=== PATIENT | male | born 1945 | race Caucasian/White ===

== ENCOUNTER 2017-03-11 05:57 | Day surgery (SDC) | payer MEDICARE ==
[2017-03-08 08:33] VITALS: BP 103/57
[2017-03-08 08:42] LABS: APPEARANCE,URINE Clear (CLEAR); BILIRUBIN,URINE Negative (NEGATIVE); COLOR,URINE Yellow (YELLOW); GLUCOSE, URINE (UA) Negative (NEGATIVE); KETONES,URINE Negative (NEGATIVE); LEUKOCYTE ESTERASE ,URINE Negative (NEGATIVE); NITRATE,URINE Negative (NEGATIVE); OCCULT BLOOD,URINE Negative (NEGATIVE); PROTEIN,URINE Negative (NEGATIVE); UROBILINOGEN,URINE 0.2 mg/dL (0.2-1.0)
[2017-03-08 08:43] LABS: BASOPHILS % (AUTO) 0.9 % (0.0-5.0); EOSINOPHILS % (AUTO) 4.3 % (0.0-8.0); HEMATOCRIT 40.1 % (42-54); LYMPHOCYTES % (AUTO) 24.1 % (21.0-51.0); MEAN CORPUSCULAR HGB CONC 33.9 g/dL (32.0-36.0); MEAN CORPUSCULAR VOLUME 94.5 fL (79-99); MONOCYTES % (AUTO) 12.3 % (3.0-13.0); NEUTROPHILS % (AUTO) 58.4 % (40.0-77.0); PLATELET COUNT (AUTO) 126 K/uL (130-400); RED BLOOD CELL COUNT(AUTO) 4.25 MIL/uL (4.50-6.20); RED CELL DISTRIBUTION WIDTH 13.6 % (11.0-15.5)
[2017-03-08 08:55] LABS: CREATININE 0.9 mg/dL (0.5-1.5); POTASSIUM 4.3 mmol/L (3.5-5.1)
[2017-03-08 09:02] LABS: INR 0.95 (0.85-1.15); PARTIAL THROMBOPLASTIN TIME 25.4 SEC (26.3-35.5)
[~2017-03-11] VITALS: Ht 182.9 cm; Wt 71.8 kg
[2017-03-11] VITALS (8 sets, daily range): BP systolic 101–128; BP diastolic 51–71
[~2017-03-11 05:57] MED LIST: ACETAMINOPHEN 325 MG TAB PO PRN; ASPI-1181 PO; ATOR20TA PO; DEXA0.5S2 PO; LORA1TAB3 PO; MELA3TAB PO; METO-408 PO; RANI300T4 PO; RANO500T2 PO; SILO8CAP PO; SODIUM CHLORIDE 0.9% 500ML 500 ML IV SCH; [UNRECOGNIZED DRUG - CODE] PO
[2017-03-11] MEDS ORDERED: IOPAMIDOL-370 75 ML VIAL IV ONE (07:09)
[2017-03-11] MEDS ORDERED: IOPAMIDOL-370 100 ML VIAL IV ONE (07:09)
[2017-03-11] MEDS ORDERED: NITROGLYCERIN 5 MG/ML 10 ML VIAL IV ONE (07:09)
[2017-03-11] MEDS ORDERED: HEPARIN SODIUM 1000UNIT/ML 10ML VIAL ONE (07:09)
[2017-03-11] MEDS ORDERED: LIDOCAINE HCL 2% 20ML ONE (07:10)
[2017-03-11] MEDS ORDERED: MIDAZOLAM HCL 1 MG/ML 2ML VIAL ONE (07:10)
[2017-03-11] MEDS ORDERED: FENTANYL CITRATE PF 50 MCG/1 ML 2ML VIAL ONE (07:10)
[2017-03-11] MEDS ORDERED: SODIUM CHLORIDE 0.9% 1000ML 1,000 ML IV ONE (07:41)
[2017-03-11] MEDS ORDERED: SODIUM CHLORIDE 0.9% 1000ML 1,000 ML IV SCH (08:18)
[2017-03-11] MEDS ORDERED: METOPROLOL TARTRATE 1 MG/ML 5ML VIAL IV PRN (08:30)
[2017-03-11] MEDS ORDERED: GLUCAGON 1MG KIT 1 MG ML IM PRN (08:30)
[2017-03-11] MEDS ORDERED: DEXTROSE 50%-WATER 50 ML DISP.SYRIN IV PRN (08:30)
[2017-03-11] MEDS ORDERED: NITROGLYCERIN 0.4 MG SL TAB SL PRN (08:30)
== END 2017-03-11 13:00 | disposition home or self-care (01) ==
LOC: DAH 05:57
PROVIDERS: ATTEND Internal Medicine Cardiovascular Disease
DX: I25.10 Atherosclerotic heart disease of native coronary artery without angina pectoris (principal); I10 Essential (primary) hypertension; I48.0 Paroxysmal atrial fibrillation; E78.5 Hyperlipidemia, unspecified; Z79.82 Long term (current) use of aspirin; Z79.01 Long term (current) use of anticoagulants
CPT/HCPCS: 36415; 71045; 80048; 81003; 85025; 85610; 85730; 93005; 93458; 99156; 99157; A4606; C1760; C1894 ×2; J1644; J2250; J3010; J3490 ×2; J7030; Q9967 ×2; 99152; 99153

== ENCOUNTER → 2024-02-18 | Outpatient (CLI) | payer MEDICARE ==
[~2024-02-18] MED LIST changes: -ACETAMINOPHEN 325 MG TAB PO PRN; -ASPI-1181 PO; +ASPI-1443 PO; +IOHEXOL 350 MG/ML 100ML INFUS..BTL IV ONE; -MELA3TAB PO; +MELA3TAB41 PO; -SILO8CAP PO; +SILO8CAP2 PO; -SODIUM CHLORIDE 0.9% 500ML 500 ML IV SCH
--- NOTE | 2024-02-18 11:22 | HMCIMG ---
CT CARDIAC ANGIO W/CONT. CCTA HISTORY: Atherosclerotic heart disease COMPARISON: None TECHNIQUE: Multiple sequential axial images of the chest were obtained along with the CT angiogram of the chest study. Patient was given 100 cc of Omnipaque through intravenous route. FINDINGS: There is no evidence of pulmonary nodule or parenchymal disease. No pleural effusion or pericardial effusion is seen. There is no evidence of pneumothorax. There are normal size mediastinal and hilar lymph nodes. The heart is borderline enlarged. Coronary arterial calcifications are seen. Degenerative changes of the thoracolumbar spine are present. IMPRESSION: 1. No evidence of pulmonary nodule or effusion is seen. Please see CT angiogram report of coronary arteries.
--- NOTE | 2024-02-19 11:06 | CARDIOLOGY ---
RAD REPORT: [facility] CT ANGIO RADIOLOGY REPORT: CORONARY CT ANGIOGRAPHY DATE: Feb 19, 2024 QUALITY: Excellent CLINICAL HISTORY AND INDICATION: [ CAD] TECHNIQUE: After obtaining a preliminary energy derivatives trader image, contrast imaging performed on an [employer]illon [id number] scanner. A dedicated, limited window, coronary imaging protocol was used, with single breath-hold, retrospective ECG gating, and automated arrhythmia rejection. 100 cc of low osmolar contrast agent: Omnipaque 350 was delivered via a 18-gauge IV catheter in the right antecubital fossa, using a power injector and followed by 60 cc of normal saline bolus as a chaser. Collimated images were reformatted at 0.5 mm intervals, and sent to an offline independent workstation for interpretation, using 3D anatomic reconstructions: Curved multiplanar reconstructions, maximum intensity projections, and multiplanar imaging. No metoprolol was administered prior to scanning due to low baseline heart rate. No SL nitroglycerin was given. CORONARY ARTERY DESCRIPTIONS: The coronary arteries arise in normal position. Left main coronary artery: Normal caliber vessel that bifurcates into the LAD and LCx. There is distal left main heavy calcium burden with 50% stenosis. Left anterior descending coronary artery: Normal caliber vessel and gives rise to diagonal and septal branches. Heavily calcified. There is mixed calcified and noncalcified plaque in the ostial/proximal to mid LAD with 80% stenosis. Left circumflex coronary artery: Normal caliber, nondominant and gives rise to a large OM branch. Heavily calcified. There is mixed calcified and noncalcified plaque in the ostial LCx with 50% stenosis. There is mixed calcified and noncalcified plaque in the mid LCx with 70-80% stenosis. Right coronary artery: Large, dominant vessel giving rise to the PL and PDA branches. Heavily calcified and diffusely diseased. Not able to provide luminal stenosis quantification due to motion artifact in the mid to distal segments. There is 30% stenosis diffusely in the proximal RCA. CAD-RADs: 4B, multivessel obstructive CAD. Thoracic Aorta: Normal diameter. Deborah Marie MD Cardiovascular Disease [facility] DEBORAH MARIE MD Feb 19, 2024 11:06
== END | disposition home or self-care (01) ==
LOC: RAH 09:07
PROVIDERS: ATTEND Internal Medicine Cardiovascular Disease
DX: I25.10 Atherosclerotic heart disease of native coronary artery without angina pectoris (principal); I25.5 Ischemic cardiomyopathy; M47.815 Spondylosis without myelopathy or radiculopathy, thoracolumbar region
CPT/HCPCS: 75574; Q9967

== ENCOUNTER 2024-04-06 07:41 | Day surgery (SDC) | payer MEDICARE ==
[2024-04-03 11:14] VITALS: BP 110/54; PULSE 61; RESP 18; TEMP 97.5
[2024-04-03 11:42] LABS: INR 0.98 (0.85-1.15)
[2024-04-03 11:44] LABS: PARTIAL THROMBOPLASTIN TIME 30.5 SEC (26.3-35.5)
[2024-04-03 11:47] LABS: BASOPHILS # (AUTO) 0.02 K/uL (0.00-0.20); BASOPHILS % (AUTO) 0.4 % (0.0-5.0); EOSINOPHILS # (AUTO) 0.19 K/uL (0.00-0.70); EOSINOPHILS % (AUTO) 3.9 % (0.0-8.0); HEMATOCRIT 38.5 % (42-54); IMMATURE GRANULOCYTE ABSOLUTE 0.03 K/uL (0-1); LYMPHOCYTES # (AUTO) 1.3 K/uL (1.0-4.8); LYMPHOCYTES % (AUTO) 27.5 % (21.0-51.0); MEAN CORPUSCULAR HEMOGLOBIN 32.1 pg (27.0-33.0); MEAN CORPUSCULAR VOLUME 97.2 fL (79-99); MONOCYTES # (AUTO) 0.7 K/uL (0.1-1.0); MONOCYTES % (AUTO) 15.2 % (3.0-13.0); NEUTROPHILS # (AUTO) 2.6 K/uL (1.8-7.7); NEUTROPHILS % (AUTO) 52.4 % (40.0-77.0); PLATELET COUNT (AUTO) 89 K/uL (130-400); RED BLOOD CELL COUNT(AUTO) 3.96 MIL/uL (4.50-6.20); RED CELL DISTRIBUTION WIDTH 12.8 % (11.0-15.5); WHITE BLOOD COUNT (AUTO) 4.9 K/uL (4.8-10.8)
[2024-04-03 11:52] LABS: POTASSIUM 4.3 mmol/L (3.5-5.1)
--- NOTE | 2024-04-03 12:19 | EKG ---
[facility] Test Date: 2024-04-03 Test Time: 11:55:49 Pat Name: ISELA ALVA Department: [facility] Room: Gender: M Combine Inspector: [id number] : 1945 Requested By: GRISEL DE PAZ Order Number: [id number] Reading MD: Hiro Marie Measurements Intervals [place] Rate: 44 P: 22 WV: 167 QRS: -6 QRSD: 152 T: 12 QT: 489 QTc: 478 Interpretive Statements Sinus rhythm Ventricular trigeminy Left bundle branch block Compared to ECG 03/08/2017 08:26:59 Ventricular premature complex(es) now present Sinus bradycardia no longer present Electronically Signed On 04-04-2024 17:14:58 MACHINE [employer]OP [employer]ER by Hiro Marie Please click the below link to view image of tracing.
--- NOTE | 2024-04-03 12:20 | HMCIMG ---
CHEST 1VW REASON: PREOP COMPARISON: 03/08/2017 FINDINGS: Single view of the chest was obtained. Lungs are clear. Heart size is normal. There is no pulmonary vascular congestion. Mediastinum and bony thorax appear unremarkable. IMPRESSION: 1. Normal single view chest x-ray.
--- NOTE | 2024-04-03 15:41 | NUR ---
RE: LABS REPORTED CBC RESULTS TO [facility]IR[facility] WADSWORTH (PATIENT WITH HX OF LOW PLATELETS AND SEEING RETORT FEEDER GROUND BONE). NO NEW ORDERS RECEIVED.
[2024-04-06] VITALS (12 sets, daily range): BP systolic 119–156; BP diastolic 59–89; PULSE 54–63; RESP 12–18; TEMP 97.3–97.7
[~2024-04-06] VITALS: Ht 182.9 cm; Wt 71.7 kg
[~2024-04-06 07:41] MED LIST changes: +APIX5TAB PO; -ASPI-1443 PO; -ATOR20TA PO; -DEXA0.5S2 PO; +FAMO40TA7 PO; -IOHEXOL 350 MG/ML 100ML INFUS..BTL IV ONE; -MELA3TAB41 PO; +MELA5CAP PO; +PREG75 PO; -RANI300T4 PO; +ROSU10TA72 PO; +TRAM50TA4 PO; -[UNRECOGNIZED DRUG - CODE] PO
[2024-04-06] MEDS: 0.9%NACL 1000ML 1,000 ML IV SCH (08:46)
[2024-04-06] MEDS ORDERED: IOHEXOL 350 MG/ML 100ML INFUS..BTL IV ONE (10:08)
[2024-04-06] MEDS ORDERED: LIDOCAINE HCL 400MG/20ML VIAL ONE (10:08)
[2024-04-06] MEDS ORDERED: HEParin-NS 1,000 UNIT/500 ML 1,000 ML IV ONE (10:09)
[2024-04-06] MEDS ORDERED: HEParin 10,000 UNIT/10ML (1,000 UNIT/ML) VIAL ONE (10:09)
[2024-04-06] MEDS ORDERED: NITROGLYCERIN 50MG VIAL ONE (10:10)
[2024-04-06] MEDS ORDERED: MIDAZOLAM HCL 1 MG/ML 2ML VIAL ONE (10:34)
[2024-04-06] MEDS ORDERED: FENTanyl CITRate PF 50 MCG/1 ML 2ML VIAL ONE (10:34)
[2024-04-06] MEDS ORDERED: NITROGLYCERIN 0.4 MG SL TAB SL PRN (11:30)
[2024-04-06] MEDS ORDERED: 0.9%NACL 1000ML 1,000 ML IV SCH (11:30)
--- NOTE | 2024-04-06 11:38 | PRN ---
Left Heart Cath-[place] PROCEDURE: 1. Right common femoral arterial sheath placement. 2. Selective coronary angiogram. 3. Left heart catheterization. 4. Left ventriculogram. 5. Left Subclavian arteriogram INDICATIONS: Chest pain Abnormal stress test and coronary CT angiogram Known coronary artery disease DESCRIPTION OF PROCEDURE: The patient was brought to the catheterization suite and prepped and draped in sterile fashion. An IV was started, if not already in place and both groins were exposed for arterial access. 1% lidocaine was used for local anesthesia and then a micropuncture kit was used to gain access and once free-flowing blood was seen, modified Seldinger technique was utilized to place a 6 [place] sheath into the right common femoral artery. Next, preformed JL4 and JR4 Catheters were then used to selectively engage the [place] coronary vessels and multiple hand contrast injections were performed in different views to define the coronary anatomy. The JR4 catheter was also used to selectively engage the left subclavian artery pressure measurements were obtained and then a subclavian arteriogram was performed to assess patency of left internal mammary artery. Next, a six [place] angled pigtail catheter was used to cross the aortic valve. Pressure measurements were obtained in the left ventriculogram was in the 30 CANELA position. Next, pullback method was performed. At the end of the case, sheath was pulled with the use of a closure device for closure of arteriotomy site.. No complications occurred. FINDINGS: The left main artery is calcified throughout its course with a distal stenosis of 50%. It bifurcates into the LAD and left circumflex vessel. The left anterior descending artery is calcified throughout its proximal and mid segments of the vessel with an ostial stenosis of 70% proximal stenosis of 75% and a distal LAD stenosis of 75%. The left circumflex artery is a codominant system giving rise to the left posterolateral branch. It is calcified in its proximal and mid segments with the mid left circumflex having a 70% stenosis present. The right coronary artery is calcified throughout its proximal mid and distal course with some aneurysmal changes noted followed by a mid distal stenosis of 75% followed by another distal stenosis of proximally 60-70%. The right coronary artery is a codominant system giving rise to the PDA which is patent. LVEDP is 17 mmHg There was no evidence of aortic stenosis or mitral regurgitation Ejection fraction was estimated at 65% Wall motion is normal in one should be noted that patient's subclavian artery is patent as is the left internal mammary artery. GRISEL ESCALONA MD Apr 06, 2024 11:38
== END 2024-04-06 17:30 | disposition home or self-care (01) ==
LOC: DAH 07:41
PROVIDERS: ATTEND Internal Medicine Cardiovascular Disease
DX: R94.39 Abnormal result of other cardiovascular function study (principal); I25.118 Atherosclerotic heart disease of native coronary artery with other forms of angina pectoris; I44.7 Left bundle-branch block, unspecified; E78.5 Hyperlipidemia, unspecified; R07.9 Chest pain, unspecified; I49.3 Ventricular premature depolarization; I25.83 Coronary atherosclerosis due to lipid rich plaque; I48.0 Paroxysmal atrial fibrillation; E66.9 Obesity, unspecified; N40.0 Benign prostatic hyperplasia without lower urinary tract symptoms; I25.82 Chronic total occlusion of coronary artery; K21.9 Gastro-esophageal reflux disease without esophagitis; F10.90 Alcohol use, unspecified, uncomplicated; Z90.89 Acquired absence of other organs; Z79.01 Long term (current) use of anticoagulants; Z98.890 Other specified postprocedural states; Z82.49 Family history of ischemic heart disease and other diseases of the circulatory system; Z79.899 Other long term (current) drug therapy; Z68.21 Body mass index [BMI] 21.0-21.9, adult; Z79.82 Long term (current) use of aspirin
CPT/HCPCS: 80048; 85025; 85610; 85730; 36415; 71045; 93005; 93458; 75710; 36215; C1894 ×3; C1760; J3010; J3490 ×2; J7030; J2250; J1644; Q9967; A4215; A4222; A4221; A4663; A4216; A4606; A4223 ×3; 99156; 99157